=== PATIENT | male | born 1990 | race Caucasian/White ===

== ENCOUNTER 2020-01-09 18:58 | Emergency (ER) | payer OTHER, SELFPAY ==
[2020-01-09 19:00] VITALS: BP 127/89; PULSE 124; RESP 16; TEMP 36.2; O2SAT 98; BMI 27.8
[2020-01-09 19:39] LABS: Absolute Lymphocyte Count 3.47 X10^3/uL (0.83-4.51); Absolute Neutrophil Count 6.4 X10^3/uL (2.0-7.7); Basophil# 0.03 X10^3/uL; Basophil% 0.3 % (0-1); Eosinophil# 0.27 X10^3/uL; Eosinophils% 2.5 % (0-5); Hematocrit 45.5 % (40-54); Hemoglobin 15.2 g/dL (13.0-16.5); Lymphocyte # 3.47 X10^3/ul (4.0); Mean Corp Hgb Conc 33.4 g/dL (32-36); Mean Corpuscular Hgb 29.9 pg (27.0-32.0); Mean Corpuscular Volume 89.6 fL (80-94); Mean Platelet Vol. 9.2 fl (6.2-12.0); Monocyte% 5.5 % (0-10); NRBC Flagged by Analyzer 0 % (0-5); Neutrophil # 6.42 X10^3/uL (2.7-7.7); Neutrophil % 59.2 % (47-70); Platelet Count 392 K/mm3 (150-450); RBC Distribution Width CV 12.6 % (11.6-14.6); RBC Distribution Width SD 41.1 fl (35.1-43.9); Red Blood Count 5.08 M/mm3 (4.6-6.2); White Blood Count 10.8 K/mm3 (4.4-11.0)
--- NOTE | 2020-01-09 19:40 | RAD_ITS ---
STUDY: X-RAY - RIGHT FOOT CLINICAL: Male, 29 years old. patient had recent foot surgery at [facility] on 12-30-19. having pain and redness TECHNIQUE: 3 view(s) of the foot. COMPARISON: None. FINDINGS: Oblique minimally displaced fracture through the base of the second metatarsal as well as tuft fracture of the second digit. Postsurgical change of the first metatarsal. Soft tissue swelling. RAD/Foot min 3 Views IMPRESSION: Fracture through the base of the second metatarsal with a tuft fracture of the second digit. Postsurgical change of the first metatarsal Electronically Signed: Del Partida DO at 19:53 EST Tel , Service support ,
[2020-01-09 19:50] LABS: Erythrocyte Sedimentation Rate 2 mm/hr (0-15)
[2020-01-09 20:03] LABS: Anion Gap 8 (5-15); BUN 27 mg/dL (7-18); BUN/Creat Ratio 22.1 RATIO (10-20); CRP < 2.90 mg/L (0.0-3.0); Calcium,Total 8.9 mg/dL (8.5-10.1); Chloride 104 mmol/L (98-107); Creatinine, Serum 1.22 mg/dL (0.70-1.30); EST Glomerular Filtration Rate 74 mL/min (>60); Est Glom Filt Rate - Afr Amer 89 mL/min (>60); Estimated Creatinine Clearance 97.18 ml/min; Glucose 104 mg/dL (74-106); Potassium 3.7 mmol/L (3.5-5.1); Sodium Level 138 mmol/L (136-145)
--- NOTE | 2020-01-09 20:49 | ED.VIS.GEN ---
History of Present Illness Chief Complaint: Lower Extremity Injury Informant: Patient Onset: Today Context: Sudden Onset Timing: Continuous Quality: Swelling and discoloration right foot Location: Right foot dorsal surface Current Severity: Mild Maximum Severity: Moderate Worsened by: Nothing Relieved by: Nothing Associated Symptoms: No constitutional symptoms, no new drainage Narrative: Patient is a 29-year-old male who had a fracture of his right foot requiring open reduction internal fixation. This occurred approximately 10 days ago. He presents because of swelling and discoloration of the foot. Patient denies fever, chills night sweats. He denies paresthesia, anesthesia or motor weakness. He states the surgery was performed at [facility]. Patient denies history of diabetes. He denies history of peripheral vascular disease. Prior similar symptoms: No Recent Illness/Hospitalization: Yes - Past Medical History (1) Fracture of right foot Status: Acute Past Medical History - Allergies and Home Meds Allergies/Adverse Reactions: Allergies No Known Allergies Allergy (Verified 01/09/20 19:03) Primary Care Physician: Care Physician,No Primary [Primary Care Provider] - Prior records reviewed: No - Seizure performed at outside facility Surgical History: - - Open reduction internal fixation fractures right foot Smoking Status: Never smoker Alcohol: Rare Drugs: None Review of Systems General: Denies: Chills, Fever, Malaise, Subjective Cardiovascular: Denies: Chest pain, Palpitations Respiratory: Denies: Dyspnea, Cough, Dyspnea on exertion Gastrointestinal: Denies: Nausea, Vomiting, Diarrhea Musculoskeletal: Reports: Swelling. Denies: Myalgias, Arthralgias, Neck pain, Back pain, Extremity Pain Skin: Reports: Rash, Wounds. Denies: Abscess, Abrasions Neurological: Denies: Weakness, Parasthesia, Numbness Hematologic: Denies: Easy bruising, Easy bleeding Physical Exam Vital Signs/Narrative: Vital Signs Temp Pulse Resp BP Pulse Ox 01/09/20 19:00 97.1 F L 124 H 16 127/89 H 98 Inital Vital Signs reviewed: Yes General: Well nourished, Well developed, No Acute Distress Head: Normocephalic, Atraumatic Eyes: Perrl, EOMI. Negative for: Pale conjunctiva, Scleral icterus Cardiovascular: Regular rhythm, No murmurs, Normal S1, Normal S2, Tachycardia Respiratory: No distress, CTA bilaterally, Chest nontender Extremities: Nontender, Edema - There is no lymphadenopathy. There is no lymphangitis., - - Soft tissue swelling with no crepitus or bogginess or fluctuance dorsal surface right foot. There is discoloration due to recent surgery. There is a wound noted that is not draining. It appears to be a pressure sore. Sutures are in place with no erythema, warmth or induration. . Negative for: No edema Skin: Normal color. Negative for: Cyanosis, Diaphoresis, Jaundice Neurological: Alert, Oriented x3, Cranial nerves II-XII grossly intact, Normal Strength, Normal Sensation Psychological: Normal affect Diagnostic/Tx/Re-eval Impressions Foot X-Ray 01/09/20 19:40 IMPRESSION: Fracture through the base of the second metatarsal with a tuft fracture of the second digit. Postsurgical change of the first metatarsal Electronically Signed: Del Partida DO at 19:53 EST Tel , Service support , 01/09/20 19:40 Foot min 3 Views [RAD] Stat Laboratory Results 01/09/20 01/09/20 19:30 19:30 WBC 10.8 RBC 5.08 Hgb 15.2 Hct 45.5 MCV 89.6 MCH 29.9 MCHC 33.4 RDW Std Deviation 41.1 RDW Coeff of Trish 12.6 Plt Count 392 MPV 9.2 Immature Gran % (Auto) 0.500 Neut % (Auto) 59.2 Lymph % (Auto) 32.0 [place] % (Auto) 5.5 Eos % (Auto) 2.5 Baso % (Auto) 0.3 Absolute Neuts (auto) 6.4 Absolute Lymphs (auto) 3.47 Nucleated RBC % 0 ESR 2 Sodium 138 Potassium 3.7 Chloride 104 Carbon Dioxide 26.0 Anion Gap 8 BUN 27 H Creatinine 1.22 Estim Creat Clear Calc 97.18 Est GFR (MDRD) Af Amer 89 Est GFR (MDRD) Non-Af 74 BUN/Creatinine Ratio 22.1 H Glucose 104 Calcium 8.9 C-React Prot Ext Range < 2.90 X-ray was interpreted radiologist. Reviewed and agree. White count is normal. ESR and CRP are normal. Patient was informed at this time there is no evidence infection. ED Disposition - Plan for ED Patient: Disposition: Home or Assisted Living Diagnosis: Encounter for postoperative wound check Instructions: ED Wound Check Post Op No Infec Referrals: Care Physician,No Primary [Primary Care Provider] - Doctor,Your [STAFF PHYSICIAN] - 2 Days for wound check
[2020-01-09 21:16] VITALS: BP 114/90; PULSE 100; RESP 16
== END 2020-01-09 21:16 | disposition home or self-care (01) ==
PROVIDERS: Emergency Provider Emergency Medicine
DX: Z48.01 Encounter for change or removal of surgical wound dressing (principal); S92.324D Nondisplaced fracture of second metatarsal bone, right foot, subsequent encounter for fracture with routine healing; S97.81XD Crushing injury of right foot, subsequent encounter; X58.XXXD Exposure to other specified factors, subsequent encounter
CPT/HCPCS: 73630; 80048; 85025; 85652; 86140; 99282; A4216